=== PATIENT | male | born 1990 | race African-American/Black ===

== ENCOUNTER 2020-04-06 19:30 | Emergency (ER) | payer MEDICAID ==
--- NOTE | 2020-04-06 19:48 | ER Document Report ---
ED Medical Screen (RME) - General Chief Complaint: Suicidal Ideation Stated Complaint: PSYCH PROBLEM Time Seen by Provider: 04/06/20 19:40 - HPI Notes: Patient is a 30-year-old male with history of schizophrenia who presents with suicidal ideation. Patient states he began to have thoughts this morning and plan to get in a tub full of water and drop in an electric toaster into the water to electrocute himself. He reports seeing shadows and hearing voices. He denies homicidal ideation. Patient reports prior psych admissions. He currently takes quetiapine for schizophrenia. - Related Data Allergies/Adverse Reactions: No Known Allergies Allergy (Unverified 04/06/20 19:44) Home Medications: seroquel, clonidine, propanolol Past Medical History - Social History Chew tobacco use (# tins/day): No Frequency of alcohol use: None Drug Abuse: Marijuana, Other Physical Exam - Vital signs Vitals: Temp Pulse Resp BP Pulse Ox 98.1 F 109 H 20 145/74 H 99 04/06/20 19:36 04/06/20 19:36 04/06/20 19:36 04/06/20 19:36 04/06/20 19:36 - Respiratory Respiratory status: No respiratory distress Breath sounds: Normal - Cardiovascular Rhythm: Regular Heart sounds: Normal auscultation Course - Re-evaluation Re-evalutation: I have greeted and performed a rapid initial assessment of this patient. A comprehensive ED assessment and evaluation of the patient, analysis of test results and completion of medical decision making process will be conducted by an additional ED providers. - Vital Signs Vital signs: Temp Pulse Resp BP Pulse Ox 98.1 F 109 H 20 145/74 H 99 04/06/20 19:36 04/06/20 19:36 04/06/20 19:36 04/06/20 19:36 04/06/20 19:36
[2020-04-06 20:06] LABS: ABSOLUTE BASOPHILS # (AUTO) 0.1 10^3/uL (0.0-0.2); ABSOLUTE EOSINOPHILS # (AUTO) 0.3 10^3/uL (0.0-0.6); ABSOLUTE LYMPHOCYTES (AUTO) 2.4 10^3/uL (0.5-4.7); ABSOLUTE MONOCYTES (AUTO) 0.8 10^3/uL (0.1-1.4); ABSOLUTE NEUT (AUTO) 4.9 10^3/uL (1.7-8.2); BASOPHILS % (AUTO) 1.1 % (0-2); EOSINOPHILS % (AUTO) 3.1 % (0-6); HEMATOCRIT 37.3 % (37.9-51.0); LYMPHOCYTES % (AUTO) 28.6 % (13-45); MEAN CORPUSCULAR HEMOGLOBIN 29.6 pg (27.0-33.4); MEAN CORPUSCULAR HGB CONC 34.9 g/dL (32.0-36.0); MEAN CORPUSCULAR VOLUME 85 fl (80-97); MONOCYTES % (AUTO) 9.2 % (3-13); PLATELET COUNT 205 10^3/uL (150-450); RED BLOOD COUNT 4.41 10^6/uL (4.35-5.55); RED CELL DISTRIBUTION WIDTH 13.5 % (11.5-14.0); TOTAL CELLS COUNTED % (AUTO) 100 %; WHITE BLOOD COUNT 8.4 10^3/uL (4.0-10.5)
[2020-04-06 20:11] LABS: APPEARANCE,URINE CLEAR; BILIRUBIN,URINE NEGATIVE (NEGATIVE); COLOR,URINE YELLOW; GLUCOSE, URINE NEGATIVE (NEGATIVE); KETONES,URINE NEGATIVE (NEGATIVE); LEUKOCYTE ESTERASE,URINE NEGATIVE (NEGATIVE); NITRITE,URINE NEGATIVE (NEGATIVE); PROTEIN,URINE NEGATIVE (NEGATIVE); URINE SPECIFIC GRAVITY 1.024
[2020-04-06 20:24] LABS: ALBUMIN 4.5 g/dL (3.5-5.0); ALKALINE PHOSPHATASE 130 U/L (38-126); ANION GAP 5 (5-19); ASPARTATE AMINO TRANSFERASE 31 U/L (17-59); BILIRUBIN,DIRECT 0.1 mg/dL (0.0-0.4); BILIRUBIN,TOTAL 0.3 mg/dL (0.2-1.3); BLOOD UREA NITROGEN 20 mg/dL (7-20); CALCIUM 9.4 mg/dL (8.4-10.2); CARBON DIOXIDE 32 mmol/L (22-30); CHLORIDE 105 mmol/L (98-107); GLUCOSE 78 mg/dL (75-110); POTASSIUM 4.5 mmol/L (3.6-5.0); TOTAL PROTEIN 7.4 g/dL (6.3-8.2)
[2020-04-06 20:28] LABS: ACETAMINOPHEN < 10 ug/mL (10-30); ALCOHOL < 10 mg/dL (NONE DETECTED); SALICYLATE < 1.0 mg/dL (2.0-20.0)
[2020-04-06 20:29] LABS: URINE AMPHETAMINES SCREEN NEGATIVE; URINE BARBITURATES SCREEN NEGATIVE; URINE BENZODIAZEPINES SCREEN NEGATIVE; URINE COCAINE SCREEN NEGATIVE; URINE MARIJUANA (THC) SCREEN NEGATIVE; URINE METHADONE SCREEN NEGATIVE
[2020-04-06 20:34] LABS: URINE PHENCYCLIDINE SCREEN UNCONFIRMED POSITIVE
--- NOTE | 2020-04-06 20:37 | ER Document Report ---
ED Psych Disorder / Suicide - General Information source: Patient - HPI Patient complains to provider of: Hallucinating, Suicidal ideation, Suicidal plan Quality of pain: No pain Suicide Risk Factors: Hallucinations, Male, Schizophrenia, Substance abuse Normal mood: Yes Associated symptoms: Auditory hallucinations, Visual hallucinations Similar symptoms previously: Yes Recently seen / treated by doctor: No - Related Data Home Medications: seroquel, clonidine, propanolol <LADAN CASTILLO - Last Filed: 04/07/20 06:59> <SONG KEENE - Last Filed: 04/07/20 15:26> - General Chief Complaint: Suicidal Ideation Stated Complaint: PSYCH PROBLEM Time Seen by Provider: 04/06/20 19:40 Notes: Patient presents with a history of schizophrenia with suicidal ideation. Patient has had multiple plans 1 of which involve jumping off of a bridge. Patient just moved here 3 weeks ago from [place]. Patient reports visual and auditory hallucinations. Patient does report compliance with his medications. (LADAN CASTILLO) - Related Data Allergies/Adverse Reactions: No Known Allergies Allergy (Unverified 04/06/20 19:44) Past Medical History - General Information source: Patient - Social History Smoking Status: Never Smoker Chew tobacco use (# tins/day): No Frequency of alcohol use: None Drug Abuse: Marijuana, Other Family History: Reviewed & Not Pertinent Psychiatric Medical History: Reports: Hx Schizophrenia Surgical Hx: Negative <LADAN CASTILLO - Last Filed: 04/07/20 06:59> Review of Systems - Review of Systems Constitutional: No symptoms reported. denies: Recent illness EENT: No symptoms reported Cardiovascular: No symptoms reported Respiratory: No symptoms reported. denies: Cough, Short of breath Gastrointestinal: No symptoms reported Genitourinary: No symptoms reported Male Genitourinary: No symptoms reported Musculoskeletal: No symptoms reported Skin: No symptoms reported Hematologic/Lymphatic: No symptoms reported Neurological/Psychological: Hallucinations, Suicidal ideation <LADAN CASTILLO - Last Filed: 04/07/20 06:59> Physical Exam - General General appearance: Appears well, Alert In distress: None - HEENT Head: Normocephalic, Atraumatic Eyes: Normal Conjunctiva: Normal Nasal: Normal Mouth/Lips: Normal Mucous membranes: Normal Neck: Normal, Supple. No: Lymphadenopathy - Respiratory Respiratory status: No respiratory distress Chest status: Nontender Breath sounds: Normal. No: Rales, Rhonchi, Stridor, Wheezing Chest palpation: Normal - Cardiovascular Rhythm: Tachycardia Heart sounds: S1 appreciated, S2 appreciated - Back Back: Normal, Nontender. No: CVA tenderness - Extremities General upper extremity: Normal inspection, Normal ROM General lower extremity: Normal inspection, Normal ROM - Neurological Neuro grossly intact: Yes Cognition: Normal Barak Coma Scale Eye Opening: Spontaneous [place] Coma Scale Verbal: Oriented [place] Coma Scale Motor: Obeys Commands Barak Coma Scale Total: 15 - Psychological Associated symptoms: Normal affect, Normal mood - Skin Skin Temperature: Warm Skin Moisture: Dry Skin Color: Normal <LADAN CASTILLO - Last Filed: 04/07/20 06:59> - Vital signs Vitals: Temp Pulse Resp BP Pulse Ox 98.1 F 109 H 20 145/74 H 99 04/06/20 19:36 04/06/20 19:36 04/06/20 19:36 04/06/20 19:36 04/06/20 19:36 - Psychological Notes: Patient does not act as though he is responding to internal stimuli (LADAN CHAVARRIA) Course - Laboratory Result Diagrams: 04/06/20 19:50 04/06/20 19:50 <LADAN CASTILLO - Last Filed: 04/07/20 06:59> - Laboratory Result Diagrams: 04/06/20 19:50 04/06/20 19:50 <SONG KEENE - Last Filed: 04/07/20 15:26> - Re-evaluation Re-evalutation: 04/06/20 20:55 Patient appears medically clear at this time, pending behavioral health team evaluation. (LADAN CASTILLO) - Vital Signs Vital signs: Temp Pulse Resp BP Pulse Ox 98.3 F 88 16 136/86 H 100 04/07/20 11:22 04/07/20 11:22 04/07/20 11:22 04/07/20 11:22 04/07/20 11:22 - Laboratory Laboratory results interpreted by me: 04/06/20 04/06/20 04/06/20 19:50 19:50 19:50 Hgb 13.0 L Hct 37.3 L Carbon Dioxide 32 H Alkaline Phosphatase 130 H Urine Urobilinogen 2.0 H Urine Ascorbic Acid 40 H Salicylates < 1.0 L Acetaminophen < 10 L 04/06/20 21:41 Labs- All tests 24 hr 04/06/20 04/06/20 04/06/20 19:50 19:50 19:50 WBC 8.4 RBC 4.41 Hgb 13.0 L Hct 37.3 L MCV 85 MCH 29.6 MCHC 34.9 RDW 13.5 Plt Count 205 Lymph % (Auto) 28.6 Guadalupe % (Auto) 9.2 Eos % (Auto) 3.1 Baso % (Auto) 1.1 Absolute Neuts (auto) 4.9 Absolute Lymphs (auto) 2.4 Absolute Monos (auto) 0.8 Absolute Eos (auto) 0.3 Absolute Basos (auto) 0.1 Seg Neutrophils % 58.0 Sodium 141.5 Potassium 4.5 Chloride 105 Carbon Dioxide 32 H Anion Gap 5 BUN 20 Creatinine 1.10 Est GFR ( Amer) > 60 Est GFR (MDRD) Non-Af > 60 Glucose 78 Calcium 9.4 Total Bilirubin 0.3 Direct Bilirubin 0.1 Neonat Total Bilirubin Not Reportable Neonat Direct Bilirubin Not Reportable Neonat Indirect Bili Not Reportable AST 31 ALT 21 Alkaline Phosphatase 130 H Total Protein 7.4 Albumin 4.5 Urine Color YELLOW Urine Appearance CLEAR Urine pH 5.0 Ur Specific Maple 1.024 Urine Protein NEGATIVE Urine Glucose (UA) NEGATIVE Urine Ketones NEGATIVE Urine Blood NEGATIVE Urine Nitrite NEGATIVE Urine Bilirubin NEGATIVE Urine Urobilinogen 2.0 H Ur Leukocyte Esterase NEGATIVE Urine WBC (Auto) 0 Urine RBC (Auto) 0 Squamous Epi Cells Auto <1 Urine Mucus (Auto) OCC Urine Ascorbic Acid 40 H Salicylates < 1.0 L Urine Opiates Screen Urine Methadone Screen Acetaminophen < 10 L Ur Barbiturates Screen Ur Phencyclidine Scrn Ur Amphetamines Screen U Benzodiazepines Scrn Urine Cocaine Screen U Marijuana (THC) Screen Serum Alcohol < 10 04/06/20 19:50 WBC RBC Hgb Hct MCV MCH MCHC RDW Plt Count Lymph % (Auto) Guadalupe % (Auto) Eos % (Auto) Baso % (Auto) Absolute Neuts (auto) Absolute Lymphs (auto) Absolute Monos (auto) Absolute Eos (auto) Absolute Basos (auto) Seg Neutrophils % Sodium Potassium Chloride Carbon Dioxide Anion Gap BUN Creatinine Est GFR ( Amer) Est GFR (MDRD) Non-Af Glucose Calcium Total Bilirubin Direct Bilirubin Neonat Total Bilirubin Neonat Direct Bilirubin Neonat Indirect Bili AST ALT Alkaline Phosphatase Total Protein Albumin Urine Color Urine Appearance Urine pH Ur Specific Maple Urine Protein Urine Glucose (UA) Urine Ketones Urine Blood Urine Nitrite Urine Bilirubin Urine Urobilinogen Ur Leukocyte Esterase Urine WBC (Auto) Urine RBC (Auto) Squamous Epi Cells Auto Urine Mucus (Auto) Urine Ascorbic Acid Salicylates Urine Opiates Screen NEGATIVE Urine Methadone Screen NEGATIVE Acetaminophen Ur Barbiturates Screen NEGATIVE Ur Phencyclidine Scrn UNCONFIRMED POSITIVE Ur Amphetamines Screen NEGATIVE U Benzodiazepines Scrn NEGATIVE Urine Cocaine Screen NEGATIVE U Marijuana (THC) Screen NEGATIVE Serum Alcohol (LADAN CASTILLO) Discharge <LADAN CASTILLO - Last Filed: 04/07/20 06:59> <SONG KEENE - Last Filed: 04/07/20 15:26> - Discharge Clinical Impression: Suicidal ideations Condition: Stable Disposition: HOME, SELF-CARE Additional Instructions: You have been evaluated by both medical and behavioral health teams for suicidal ideation. You have been deemed appropriate for discharge. While in the emergency department you received the following services/or had access to: Medical screening and assessment, nursing services, dietary services, pharmacological services, one-on-one counseling and/or psychotherapy, environmental services, and continuous observation by a patient safety coleenantonio lopez. You should continue your home medications as prescribed and follow up with your medication provider. Suicidal Ideation Suicidal ideation is a common medical term for thoughts about suicide, which may be as detailed as a formulated plan, without the suicidal act itself. Although most people who undergo suicidal ideation do not commit suicide, some go on to make suicide attempts. The range of suicidal ideation varies greatly from fleeting to detailed planning, role playing, and unsuccessful attempts. While thoughts about suicide are common, most people do not carry out serious actions to commit suicide. However, based upon your evalutation and discussion with you, we believe you are not currently at risk to act upon your thoughts of suicide. Therefore, you will be discharged home to stay with your sister or father in [place]. Follow up care: You are currently involved in medication management with [facility] and are highly recommended to continue outpatient services. Due to your personal concern of addiction, you are also required to follow up with substance abuse/ detox facilities and referral has been provided. You are highly encouraged to abstain from substance abuse and to take your prescription medication as prescribed. You have been given a community outpatient referral list to include phone numbers for [facility] mobile crisis. You have informed the hospital you will be requesting an Uber ride to your sisters home at [address], [address], [place], [place]. You have informed the hospital that you have enough money for the Uber ride to [place]. Your dad was contacted who also expressed wanting you home and stated you could stay with him in [place] as well. We did attempt to call your sister multiple times without an answer. If you experience worsening or a significant change in your symptoms, notify the physician immediately, utilize mobile crisis, or return to the Emergency Department at any time for re-evaluation. Dr. Davalos was consulted to care management of this patient; attending physicians in agreement with recommendations and disposition. Referrals: [facility] [Outside] - Follow up as needed
--- NOTE | 2020-04-07 09:02 | EKG REPORT ---
SEVERITY:- OTHERWISE NORMAL ECG - SINUS TACHYCARDIA : Confirmed by: Peter Causey MD 07-Apr-2020 09:01:52
--- NOTE | 2020-04-07 12:50 | PSYCHOLOGICAL NOTE ---
Psych Note - Psych Note Date seen by psych provider: 04/07/20 Time seen by psych provider: 12:18 Psych Note: Collateral Information: From [id number] spoke to father Kalin ([phone]) via telephone. He confirmed patient was able to return back to [place]. He identified he and sister live separately but both in [place]. He thought patient was in [place] and mentioned he saw him 2 days ago. He reported he was not aware of all medications patient is prescribed but mentioned Seroquel. Father stated he would take patient to his pharmacy to obtain medications. He further noted patient "keeps his medications in a bag, close to himself, and are with patient all the time." Father stated patient was going to [facility] for outpatient services. He stated patient is diagnosed with Bipolar and Schizophrenia. He denied having any safety concerns with respect to patient hurting/harming/killing self. He also denied previous suicide attempts, at least to his knowledge. Father stated he is in [place] visiting family so patient would need to figure out transportation from [place] back to [place]. At 1223 tried calling sister Amelia ([phone]). It was forwarded to a voice mail system so no answer. Left voice mail with call back information.
--- NOTE | 2020-04-07 12:51 | ER Document Report ---
Doctor's Note Notes: 04/07/20 12:50 PHYSICAL EXAMINATION: GENERAL: Appears well, healthy, well-nourished, no acute distress. LUNGS: Equal breath sounds bilaterally and clear to auscultation. No wheezes rales or rhonchi. CARDIOVASCULAR: S1-S2, regular rate, regular rhythm. Radial pulses 2+, normal. ABDOMEN: Normoactive bowel sounds. Soft, nontender, no guarding, no rebound tenderness, and no masses palpated. PSYCH: Normal mood, normal affect. Patient denies any suicidal or homicidal ideation. Denies any auditory or visual hallucinations. Mental health has evaluated patient. Patient will most likely be discharged from the hospital to care of his parents.
--- NOTE | 2020-04-07 14:15 | PSYCHOLOGICAL NOTE ---
Psych Note - Psych Note Date seen by psych provider: 04/07/20 Time seen by psych provider: 11:15 Psych Note: Reason for Consult: suicidal ideation Consent Permissions: Rafaela, sister, ; Kalin, father, [id number] Patient is a 30 year old male who was admitted to the ED yesterday for suicidal ideations with a plan and was put on a 24 hour petition. Patient has a history of Schizophrenia and reports suicidal ideation. He reports plans to go home and jump off a bridge, any tall bridge possible, or fill a tub with hot water and throw something electric in there. Patient reports being prescribed Clonidine, Seroquel, Propranolol, and Depakote, however states the medications are at his fathers house in [place] except for his Seroquel he is compliant with. Patient reports he just takes Seroquel for his auditory hallucinations, but states the other 3 he only takes those sometimes. Patient reports [facility] in [place] as his medication prescriber. Patient reports he has been dealing with addiction and states he uses PCP and marijuana daily; toxicology was positive for PCP. Patient reports history of multiple inpatient hospitalizations, but cannot recall the last one. He mentions going to [place] a couple of times and [facility] as well. Patient reports the only suicide attempt in his past he can remember is when he jumped in front of a car. Patient does not work and receives SSI. 1230: Checked back in with patient. Patient reports he is no longer suicidal. He reports he spoke to his family and they want him to come home and stay with them. Patient reports he was feeling suicidal prior, but states now that his family wants to be involved he plans to go stay with his father and his sister and get the help he needs back in [place]. Patient reports he also has a 4 year old daughter in [place] that he wants to be closer to due to Odalys coming up. He reports being on and off with his daughters mother. Patient states he plans to go back to [place] and stay with family, most likely his sister. Patient states he is no longer allowed to stay back with his roommate here due to Collateral was conducted be behavioral health time. Please refer to Shakira Sales note dated, today, 04.07.2020, for collateral information and discharge plan with family involvement. Patient was alert and oriented to self, person, place, time and situation. Mood was content with congruent affect. He denied current suicidal ideation, plan, and intent. Patient did not appear to be responding to internal stimuli as evidenced by fair eye contact and answering questions appropriately when addressed. Thought processes are linear and organized; after re-eval noted plans to move back in with family in [place]. Conversational speech was within normal limits for rate, tone and prosody. Attention and concentration are fair. Intellectual abilities are estimated to be average. Insight, judgment and impulse control were fair as evidenced by coming to the ED when he was feeling suicidal, instead of attempting. Patient demonstrates future forward goal oriented thinking to include planning to stay with his sister and his father in [place] and follow up with medication management at [facility], [place] in [place]. Patient engaged appropriately. Clinical Presentation: suicidal ideation IVC Criteria per [facility] 122C Dangerous to others Within the relevant past the individual No has inflicted or attempted to inflict or threatened to inflict serious bodily harm on another AND No that there is a reasonable probability that this conduct will be repeated. OR No has acted in such a way as to create a substantial risk of serious bodily harm to another AND No that there is a reasonable probability that this conduct will be repeated. OR No has engaged in extreme destruction of property AND NO that there is a reasonable probability that this conduct will be repeated. Previous episodes of dangerousness to others, when applicable, may be considered when determining reasonable probability of future dangerous conduct. Clear, cogent, and convincing evidence that an individual has committed a homicide in the relevant past is prima facie evidence of dangerousness to others. Dangerous to self Within the relevant past the individual has done any of the following: acted in such a way as to show ALL of the following: No The individual would be unable without care, supervision, and the continued assistance of others not otherwise available, to exercise self- control, judgment, and discretion in the conduct of the individual's daily res ponsibilities and social relations or to satisfy the individual's need for nourishment, personal or medical care, group home, or self-protection and safety. AND No There is a reasonable probability of the individual suffering serious physical debilitation within the near future unless adequate treatment is given. A showing of behavior that is grossly irrational, of actions that the individual is unable to control, of behavior that is grossly inappropriate to the situation, or of other evidence of severely impaired insight and judgment shall create a prima facie inference that the individual is unable to care for himself or herself. OR Yes has attempted suicide or threatened suicide Patient reported suicidal ideations with plans AND No that there is a reasonable probability of suicide unless adequate treatment is given He did not carry out plans and came to the ED; he has plans to move back in with family in [place] and follow up with medication management; future forward goal oriented thinking OR No has mutilated himself or herself or attempted to mutilate himself or herself AND No that there is a reasonable probability of serious self-mutilation unless adequate treatment is given. NOTE: Previous episodes of dangerousness to self, when applicable, may be considered when determining reasonable probability of physical debilitation, suicide, or self-mutilation. Impression\plan: Patient is cleared from acute psychiatric services. Recommendation to [facility] 24 Hour Petition for Evaluation. Patient was admitted to the ED after expressing suicidal ideations with plans. Patient has a mental health history of multiple inpatient hospitalizations and a diagnosis of Schizophrenia. Patient is involved in medication management with [facility]. He is non-compliant with all of his medications. After speaking to family and finding out he had a place to live, patient denied suicidal ideation, plan, and intent. He reported he does not want to and wants to get help for his addiction to PCP and marijuana. He demonstrated future forward goal oriented thinking by making plans of moving back to [place] with his father or sister, making plans to see his 4 year old daughter, and planning to follow up with [facility]. It is suspected that patient was coming to the ED expressing suicidal ideations as he did not have a place to stay. Patient was staying with a friend in the [place] area, but his friend cannot allow him to stay there because he does not deal with mental issues. Patient reports he cannot stay in [place] because he has nowhere to live, but states his father and sister want him to come back to [place] to live with one of them. Patient stated his plan was to request an Uber to [place] to his sister's house. He reported having his credit card linked to his Uber account and having enough money to get there. Patient was given community referrals for outpatient care, detox and substance abuse, and mobile crisis. Highlighted was [facility] mobile crisis and [facility]. Consulted with Dr. Davalos regarding the management and care of patient. ED Physician in agreement with recommendations.
--- NOTE | 2020-04-07 15:19 | ER Document Report ---
Doctor's Note Notes: 04/07/20 15:18 Patient seen and assessed today by myself as well as the behavioral health team. They do not believe that the patient is a danger to himself or others. Patient denies any and all suicidal ideations at this time. They have made contact with the family who is very happy to take the patient back. They are not concerned about the patient's safety. Patient does have a mental health provider. He does state he still has the Seroquel. The psychology/psychiatry team is hesitant to start the patient on any new medications. They have sent also outpatient resources with the patient for substance abuse given his PCP is positive. Patient denies any and all auditory or visual hallucinations.
[2020-04-07 15:45] VITALS: BP 155/84
== END 2020-04-07 15:45 | disposition home or self-care (01) ==
LOC: ER 19:30
DX: R45.851 Suicidal ideations (principal); R44.0 Auditory hallucinations; F12.10 Cannabis abuse, uncomplicated
CPT/HCPCS: 36415; 80053; 80307; 81001; 85025; 93005; 93010; 99285